=== PATIENT | female | born 1940 | race Caucasian/White ===

== ENCOUNTER → 2016-06-25 | Outpatient (CLI) | payer OTHER, MEDICAID | LOC: FIMAGING 12:23 | DX: Z12.31 Encounter for screening mammogram for malignant neoplasm of breast (principal) | CPT/HCPCS: G0202 ==

== ENCOUNTER → 2017-07-28 | Outpatient (CLI) | payer OTHER, MEDICAID | LOC: FIMAGING 10:59 | PROVIDERS: ATTEND Family Medicine | DX: Z12.31 Encounter for screening mammogram for malignant neoplasm of breast (principal); Z80.3 Family history of malignant neoplasm of breast ==

== ENCOUNTER → 2017-08-06 | Outpatient (CLI) | payer OTHER, MEDICAID | LOC: FIMAGING 10:30 | PROVIDERS: ATTEND Family Medicine | DX: N63.21 Unspecified lump in the left breast, upper outer quadrant (principal) ==

== ENCOUNTER → 2018-03-29 | Outpatient (CLI) | payer OTHER, MEDICAID | LOC: CIMAGING 11:22 | PROVIDERS: ATTEND Family Medicine | DX: J44.9 Chronic obstructive pulmonary disease, unspecified (principal) | CPT/HCPCS: 71046-PO ==

== ENCOUNTER 2018-07-05 14:13 | Emergency (ER) | payer OTHER, MEDICAID ==
[2018-07-05 14:38] VITALS: BP 176/96
--- NOTE | 2018-07-05 15:03 | EDPHY ---
H & P Time Seen by Provider: 07/05/18 14:25 HPI/ROS: CHIEF COMPLAINT: High blood pressure History by patient HISTORY OF PRESENT ILLNESS: 78-year-old woman with history of hypertension presents complaining of her blood pressure being elevated when she saw the body component engineer today. Her body component engineer referred her to her primary care doctor's office who could not see her and sent her to the ER. Patient has been on a blood pressure medicine she can't remember for the past month. Previous to that she was on atenolol. She said she was changed because her doctor preferred the 2nd medication. Recently she has been taking Chlor-Trimeton for her allergy symptoms on the recommendation of developmental electronics assembler she saw. She denies any focal numbness weakness the difficulty with vision, speaking or swallowing or focal numbness or weakness. She denies any chest pain or difficulty breathing. She has been having chronic postnasal drip and cough. REVIEW OF SYSTEMS: As in HPI, and all other systems reviewed and are negative Smoking Status: Never smoked Physical Exam: General Appearance: Alert, obese, nontoxic Head: normocephalic, atraumatic Eyes: Pupils equal and round, reactive to light, no pallor or injection. Mouth: Mucous membranes moist. Oropharynx clear Neck: No bony tenderness, full range of motion Respiratory: Normal, effort, lungs are clear to auscultation. No wheezes, rales or rhonchi. Cardiovascular: Regular rate and rhythm. S1, S2, no murmurs, gallops or rubs appreciated Gastrointestinal: Abdomen is soft and nontender, no masses, bowel sounds normal. Back: No CVA tenderness, no bony tenderness Neurological: Awake, alert and oriented x 3, cranial nerves 2-12 intact, no pronator drift, normal gait, Skin: Warm and dry, no rashes. Musculoskeletal: No deformities or tenderness. Extremities: full range of motion, no edema, DP2+ bilat Psychiatric: Patient has normal affect, there is no agitation. Constitutional: Initial Vital Signs Temperature (C) 36.7 C 07/05/18 14:35 Heart Rate 86 07/05/18 14:35 Respiratory Rate 16 07/05/18 14:35 Blood Pressure 176/96 H 07/05/18 14:35 O2 Sat (%) 93 07/05/18 14:35 O2 Delivery Mode Room Air Allergies/Adverse Reactions: codeine [Codeine] Allergy (Mild, Verified 07/05/18 14:28) Vomiting Iodinated Contrast- Oral and IV Dye [Iodinated Contrast Media - IV Dye] Allergy (Verified 07/05/18 14:28) CONTRAST DYE Allergy (Severe, Uncoded 07/05/18 14:28) Anaphylaxis AIR CONDITIONING Allergy (Intermediate, Uncoded 07/05/18 14:28) Other-Enter Comments CIGARETTE SMOKE Allergy (Intermediate, Uncoded 07/05/18 14:28) Other-Enter Comments ENVIRONMENTAL Allergy (Mild, Uncoded 07/05/18 14:28) Congestion Home Medications: Medication Instructions Recorded Atorvastatin Calcium [Lipitor] 10 mg PO DAILY 12/03/14 Calcium Carbonate [Oyster Shell 1,000 mg PO DAILY 12/03/14 Calcium] Cholecalciferol Vit D3 [Vitamin D] 5,000 units PO DAILY 12/03/14 Fluticasone Nasal [Flonase Nasal 2 sprays NASAL DAILY PRN 12/03/14 [place] (RX)] traMADol [Ultram] 50 mg PO DAILY PRN 12/03/14 Chlor-Trimeton 07/05/18 FLUoxetine HCL [Fluoxetine HCl] 07/05/18 Lisinopril [PRINIVIL] 07/05/18 Metformin HCl [Metformin 1000 mg] 07/05/18 Metoprolol Succinate [Kapspargo 07/05/18 Sprinkle] MDM/Departure - [facility] ED Course/Re-evaluation: 78-year-old woman presents with asymptomatic elevated blood pressure. Here her initial blood pressure was noted to be high however there is no evidence of any hypertensive emergency or ongoing end-organ damage. I am recommending she stop the cord trauma time which certainly could be contributing and follow up with her primary care physician. Patient understands and is agreeable to this plan. - Depart Disposition: Home, Routine, Self-Care Clinical Impression: High blood pressure Qualifiers: Hypertension type: unspecified Qualified Code(s): I10 - Essential (primary) hypertension Condition: Good Instructions: Hypertension (ED) Additional Instructions: You were seen by Dr. Cheyenne Perkins today. Your blood pressure was high today. I recommend stopping the chlortrimiton. Please follow up with her primary care physician if her blood pressure rechecked. Return for any worsening or new concerns. Referrals: Mio Molina, [Primary Care Provider] - As per Instructions
== END 2018-07-05 15:05 | disposition home or self-care (01) ==
LOC: CED 14:13
DX: I10 Essential (primary) hypertension (principal)
CPT/HCPCS: 99282-ER

== ENCOUNTER → 2018-07-08 | Outpatient (CLI) | payer OTHER, MEDICAID | LOC: CIMAGING 10:51 ==